=== PATIENT | male | born 1975 | race Caucasian/White ===

== ENCOUNTER 2018-08-17 16:30 | Emergency (ER) | payer BC, SELFPAY ==
[2018-08-17] MEDS ORDERED: Lidocaine 1% (PF) 30 ML VIAL ONE (17:10)
--- NOTE | 2018-08-17 17:18 | CT ---
CT cervical spine noncontrast HISTORY: Neck injury. FINDINGS: Vertebral body heights and alignment are maintained. Disc space narrowing and prominent ost eophyte/disc complex at the C4-5 level with effacement of ventral aspect of the thecal sac and spinal cord. Cervicothoracic junction is intact. No acute fracture or dislocation. IMPRESSION: Degenerative changes cervical spine. No acute osseous abnormalities are demonstrated.
[2018-08-17] MEDS ORDERED: Ketorolac Tromethamine 30 MG/ML VIAL ONE (17:43)
[2018-08-17] MEDS ORDERED: Adacel (T-DAP) 0.5 ML SYRINGE ONE (17:43)
[2018-08-17] MEDS ORDERED: Ondansetron PF 4 MG/2 ML Vial ONE (20:33)
[2018-08-17] MEDS ORDERED: Morphine 4 MG/ML VIAL ONE (20:41)
== END 2018-08-17 21:28 | disposition home or self-care (01) ==
LOC: ERS 16:30
DX: S02.19XA Other fracture of base of skull, initial encounter for closed fracture (principal); F17.220 Nicotine dependence, chewing tobacco, uncomplicated; Z79.899 Other long term (current) drug therapy; W55.12XA Struck by horse, initial encounter
CPT/HCPCS: 12011; 72125; 90471; 90715; 96361; 96365; 96375; J0690; J1885; J2001; J2270; J2405